=== PATIENT | female | born 1970 | race Two or more races ===

== ENCOUNTER 2023-01-22 14:44 | Inpatient (IN) | payer OTHER ==
[~2023-01-22] VITALS: Ht 162.6 cm; Wt 66.2 kg
--- NOTE | 2023-01-22 15:23 | NUR ---
PACIENTE ALERTA TY ORIENTADA X 3. ESTA REFIERE 2 SEMANAS CON DOLOR EN EL CUERPO HOY. REFIERE HOY FUE DIALIZADA Y LE ADMINISTRARON ANTIBIOTICO DEBIDO A QUE ESTA SUPURANDO POR EL CATETER DE LA DIALISIS. REFIERE RECOMENDACION DE DR NEVES A PASAR POR ER.
[2023-01-22] MEDS ORDERED: SYNTHROID200 MCG PO (15:31)
[2023-01-22] MEDS ORDERED: PLAVIX75 MG (15:31)
[2023-01-22] MEDS ORDERED: KEPPRA500 MG PO (15:31)
[2023-01-22] MEDS ORDERED: SYNTHROID50 MCG PO (15:31)
[2023-01-22] MEDS ORDERED: MILLIPRED5 MG (15:32)
[2023-01-22] MEDS ORDERED: PEPCID AC20 MG (15:32)
[2023-01-22] MEDS ORDERED: ZOCOR40 MG PO (15:33)
[2023-01-22] MEDS ORDERED: ROCALTROL0.25 MCG (15:33)
[2023-01-22] MEDS ORDERED: PHOSLO667 M1 PO (15:33)
[2023-01-22] MEDS ORDERED: FLUDROCORTISON0.1 MG PO (15:33)
[2023-01-22] MEDS ORDERED: CATAPRES0.3 MG PO (15:35)
--- NOTE | 2023-01-22 19:01 | NUR ---
PTE EVALUADA POR DR. RITCHIE SE EJECUTA ORDEN MEDICA SE NATACHA MUESTRA BAJO MEDIDAS ASEPTICAS, SE CANALIZA BRAZO DERECHO BAJO MEDIDAS ASEPTICAS SE OBSERVA AREA TIANNA EDEMAS Y ENROJECIMIENTO. SE OREINTA PTE SOBRE TRATAMIENTO PTE REFIERE ENTENDER
== END 2023-01-27 16:46 | disposition left against medical advice (07) | DRG 314 ==
LOC: ER 14:44 → ICU-2 21:55 → SEC-K 01-23 22:06 → SURH 01-24 09:03
PROVIDERS: ADMIT Internal Medicine; ATTEND Internal Medicine
PROC: B24BYZZ Ultrasonography of Heart with Aorta using Other Contrast (ICD-10-PCS; 2023-01-23)
PROC: 5A1D70Z Performance of Urinary Filtration, Intermittent, Less than 6 Hours Per Day (ICD-10-PCS; principal; 2023-01-24)
PROC: 5A1D70Z Performance of Urinary Filtration, Intermittent, Less than 6 Hours Per Day (ICD-10-PCS; 2023-01-24)
PROC: 4A12X4Z Monitoring of Cardiac Electrical Activity, External Approach (ICD-10-PCS; 2023-01-24)
DX: T80.211A Bloodstream infection due to central venous catheter, initial encounter (principal); A41.52 Sepsis due to Pseudomonas; N18.6 End stage renal disease; D68.62 Lupus anticoagulant syndrome; D84.89 Other immunodeficiencies; I12.9 Hypertensive chronic kidney disease with stage 1 through stage 4 chronic kidney disease, or unspecified chronic kidney disease; M32.14 Glomerular disease in systemic lupus erythematosus; M54.2 Cervicalgia; D63.1 Anemia in chronic kidney disease; E11.22 Type 2 diabetes mellitus with diabetic chronic kidney disease; I25.10 Atherosclerotic heart disease of native coronary artery without angina pectoris; E03.9 Hypothyroidism, unspecified; E20.9 Hypoparathyroidism, unspecified; B96.5 Pseudomonas (aeruginosa) (mallei) (pseudomallei) as the cause of diseases classified elsewhere; Z99.2 Dependence on renal dialysis; Z86.73 Personal history of transient ischemic attack (TIA), and cerebral infarction without residual deficits; Z79.02 Long term (current) use of antithrombotics/antiplatelets; Z85.850 Personal history of malignant neoplasm of thyroid; Z79.52 Long term (current) use of systemic steroids

== ENCOUNTER 2023-07-11 10:05 | Outpatient (CLI) | payer OTHER ==
[~2023-07-11 10:05] MED LIST: CATAPRES0.3 MG PO; FLUDROCORTISON0.1 MG PO; KEPPRA500 MG PO; MILLIPRED5 MG; PEPCID AC20 MG; PHOSLO667 M1 PO; PLAVIX75 MG; ROCALTROL0.25 MCG; SYNTHROID200 MCG PO; SYNTHROID50 MCG PO; ZOCOR40 MG PO
== END 2023-07-11 10:06 | disposition home or self-care (01) ==
LOC: NUCLEAR 10:05
PROVIDERS: ATTEND Internal Medicine Cardiovascular Disease
DX: I10 Essential (primary) hypertension (principal)

== ENCOUNTER → 2024-07-25 10:44 | Outpatient (CLI) | payer OTHER | END | disposition home or self-care (01) | LOC: SONOGRAMA 10:44 | DX: N18.9 Chronic kidney disease, unspecified (principal); Z94.0 Kidney transplant status ==

== ENCOUNTER 2025-01-19 13:39 | Outpatient (CLI) | payer OTHER | END 2025-01-19 13:44 | disposition home or self-care (01) | LOC: MRI 13:39 | DX: N18.30 Chronic kidney disease, stage 3 unspecified (principal); Z94.0 Kidney transplant status; Z98.890 Other specified postprocedural states; Z79.51 Long term (current) use of inhaled steroids | CPT/HCPCS: 72148 ==

== ENCOUNTER 2025-06-03 10:47 | Outpatient (CLI) | payer OTHER ==
[~2025-06-03 10:47] MED LIST changes: +METHOCARBAMOL750 MG PO
== END 2025-06-03 10:50 | disposition home or self-care (01) ==
LOC: SONOGRAMA 10:47
PROVIDERS: ATTEND Internal Medicine
DX: I13.10 Hypertensive heart and chronic kidney disease without heart failure, with stage 1 through stage 4 chronic kidney disease, or unspecified chronic kidney disease (principal); E04.1 Nontoxic single thyroid nodule; M04.1 Periodic fever syndromes; E89.0 Postprocedural hypothyroidism

== ENCOUNTER → 2025-07-30 | Emergency (ER) | payer OTHER | END | disposition left against medical advice (07) | LOC: ER 21:15 | DX: Z20.822 Contact with and (suspected) exposure to COVID-19 (principal) ==